=== PATIENT | female | born 1965 | race Caucasian/White ===

== ENCOUNTER 2018-06-27 17:45 | Emergency (ER) | payer OTHER ==
--- OUTSIDE RECORDS SUMMARY | 2018-06-27 17:58 | XMS REPORT | Continuity of Care Document ---
:1965 External Reference #:[id number] Author Name Tami Rueda Care Team Providers Name Role Phone Tan Hendrix NP Care Team Information Hand Finisher Unavailable Tan Hendrix NP Primary Care Physician Unavailable Payers Date Identification Numbers Payment Provider Subscriber Policy Number: [id number] [employer] Sanaz Hoyos PayID: [id number] [address] [place] [address] Expires: 2014 Policy Number: [id number] Systems Sanaz Hoyos [address] [address] Expires: 2017 Policy Number: [id number] Medicaid Sanaz Hoyos PayID: [id number] [address] [place] [address] Advance Directives Description No Information Available Problems Date Description Provider Status Onset: 12/06/2012 Crohn's disease Delmis Galarza M.D. Active Onset: 03/10/2011 Migraine Delmis Galarza M.D. Active Onset: 03/10/2011 Intrinsic asthma without status Delmis Galarza M.D. Active asthmaticus Onset: 06/04/2016 Screening for malignant neoplasm Yung Montero MD Active of colon Onset: 06/04/2016 Hemorrhage of rectum and anus Yung Montero MD Active Onset: 06/04/2016 Heartburn Yung Montero MD Active Onset: 09/28/2017 Flatulence, eructation and gas Yung Montero MD Active pain Onset: 07/29/2017 Duodenitis Yung Montero MD Active Onset: 07/29/2017 Ulcerative colitis Yung Montero MD Active Onset: 06/08/2017 Constipation Yung Montero MD Active Onset: 10/19/2014 Conjunctivitis Resolved Resolved: 04/08/2015 Onset: 06/15/2014 Bronchitis Resolved Resolved: 04/08/2015 Onset: 06/15/2014 Acute upper respiratory infection Resolved Resolved: 04/08/2015 Family History Date Family Member(s) Observation Comments Father Hypoglycemia : Father due to Lung Cancer (05/2016) Father Lung Cancer Mother Diabetes diet controlled Mother Hypercholesterolemia Paternal Grandfather Heart Attack Maternal Grandfather due to Throat Cancer () - + smoker Maternal Grandmother due to Tumors in () throat Social History Type Date Description Comments Sex Unknown Marital Status Patient is Home Environment Lives With Children Diet Patient follows no dietary restrictions Occupation [employer] Work Status Currently Working ETOH Use Denies alcohol use Tobacco Use Start: Unknown Patient has never smoked Recreational Drug Use Denies Drug Use Smoking Status Reviewed: 05/29/18 Patient has never smoked Allergies, Adverse Reactions, Alerts Date Description Reaction Status Severity Comments 03/10/2011 Ceftin Active 03/10/2011 Ibuprofen Active 10/19/2014 Codeine Active 10/19/2014 Lactose Active 10/19/2014 Cefuroxime Active 10/19/2014 Amoxicillin Active Medications Medication Date Status Form Strength Qnty SIG Indications Ordering Provider Gas-X Ultra 05/30/19 Active Capsules 180mg 60cap 2 tab by R14.2 Chito Strength 19 s Micky castillo, four MD times a day as needed Beano 05/30/19 Active Tablets 90tab 1 tab by Tati.2 Chito 19 s Micky castillo, three MD times a day before meals Apriso 07/22/19 Active Caps ER 0.375gm 120ca 4 caps by Chito 18 24HR ps Micky castillo every day Mesalamine 07/22/19 Active Enema 4gm 30uni 1 enema Chito 18 ts per Micky rectum every night 5 times a week Lansoprazole 06/15/19 Active Capsules 15mg 90cap 1 cap by Yung 18 DR neida Montero MD every day every morning Albuterol 07/30/19 Active Nebulizer 1.25mg/3M 75ml use with Clune, Sulfate 16 L nebulizer Ray as eigh, CLAIMS ASSISTANT directed every 4 hours Advair Diskus 04/08/19 Active Aerosol 250-50mcg 180un Inhale 1 J45.30 Clune, 16 /Dose its puff By Ray darby, CLAIMS ASSISTANT Twice Daily Benzonatate 01/30/20 Active Capsules 200mg 90cap one Clune, 15 s tablet by Jenniferl mouth eigh, CLAIMS ASSISTANT every 8 hours as needed cough Ventolin HFA 09/14/19 Active Aerosol 108(90Bas 1unit 2 Puffs Clune, 15 e) s By Mouth Jenniferl mcg/Act Every 4 eigh, CLAIMS ASSISTANT Hours as Needed Montelukast 12/23/19 Active Tablets 10mg 30tab Take 1 Clune, Sodium 13 s Tablet By Jenniferl Mouth eigh, CLAIMS ASSISTANT Every Day Propranolol HCL 11/03/19 Active Caps ER 160mg 120ca Take 2 Clune, ER 12 24HR ps Capsules Jenniferl By Mouth eigh, CLAIMS ASSISTANT Twice Daily Naratriptan HCL Active Tablets 2.5mg 27tab 1 tablet Clune, 00 s by mouth Jenniferl at start eigh, CLAIMS ASSISTANT of hunter, may repeat in 2 hours as needed Multivitamin Active Tablets 1 by Unknown Adult 00 mouth every day Restasis Active Emulsion 0.05% 1 drop Unknown 00 both eyes twice daily. please dispense 180 vials, which is 3 month supply Carbidopa-Levodo Active Tablets 25-100mg 1 tablet Unknown pa 00 by mouth tid Bactrim DS 11/11/19 Hx Tablets 800-160mg 20tab 1 tab by N39.0 Matias 18 - s mouth q12 Maisha, 11/26/19 x 10 days PNP-BC, 18 CLAIMS ASSISTANT, Ibclc Simethicone 09/29/19 Hx Chewtabs 80mg 120un 1 tab by R14.2 Yung 18 - its mouth MD Winston 05/30/19 four 19 times a day as needed Canasa 07/15/19 Hx Suppositor 1000mg 30uni 1 per Young 18 - y ts sera Montero MD Unknown every day every night Lialda 07/15/[address] 1.2gm 360ta 4 tab by Yung 18 - bs mouth MD Winston Unknown every day every morning Golytely 06/17/19 Hx Solution 236gm 4000m drink Yung 18 - Rec l half the MD Winston Unknown evening before and half the morning of the procedure (1 cup every 10') Miralax 06/17/19 Hx Powder 1Bott 255gm Yung 18 - le with 64 MD Winston Unknown oz of what ever she wants to drink and drink it all Dulcolax 06/09/[address] 5mg 4tabs 4 tablets K62.5 Yung 18 - taken a MD Winston Unknown 8pm the day before the procedure Magnesium 06/09/19 Hx Solution 1.745GM/3 296ml 1 bottle K62.5 Young Citrate 18 - 0ML po x one MD Winston Unknown as directed Moviprep 06/09/19 Hx Solution 100gm 1unit as K62.5 Yung 18 - Rec s directed MD Winston Unknown Esomeprazole 06/09/19 Hx Capsules 20mg 90cap 1 cap by R12 Yung Magnesium 18 - DR s mouth MD Winston Unknown every day every morning Prednisone 03/22/19 Hx Tablets 20mg 10tab 1 pO bid J45.21 Clolga, 18 - s x 5 days Jenniferl 03/27/19 eigh, CLAIMS ASSISTANT 18 Zithromax 03/22/19 Hx Tablets 250mg 6tabs take 2 J45.21 Ruma 18 - tabs by Jenniferl 03/28/19 mouth on eigh, CLAIMS ASSISTANT 18 day 1 then 1 tab by mouth qddays 2-5 Prednisone 05/31/19 Hx Tablets 20mg 8tabs Once Unknown 16 - Daily 05/18/19 17 Flovent HFA 04/08/19 Hx Aerosol 220mcg/Ac 1 puffs J45.30 Ruma, 16 - t twice Jenniferl 04/08/19 daily eigh, CLAIMS ASSISTANT 16 Cetirizine HCL 08/01/19 Hx Tablets 10mg 30tab 1 by J30.9 Clune, 15 - s mouth Jenniferl Unknown every day eigh, CLAIMS ASSISTANT Benzonatate 06/12/19 Hx Capsules 100mg 30cap 1 cap by Clune, 15 - s mouth Jenniferl 01/30/20 three eigh, CLAIMS ASSISTANT 15 times a day cough Cyclobenzaprine 03/29/19 Hx Tablets 10mg 90tab 1 tab by Ruma, HCL 15 - s mouth Jenniferl 05/18/19 every 8 eigh, CLAIMS ASSISTANT 17 hours as needed muscle spasms Tramadol HCL 03/29/19 Hx Tablets 50mg 80tab take 1-2 Kaity, 15 - s tabs by Delmis 05/18/19 MD anna 17 every 6 hours as needed moderate to severe pain Reference #: [id number] Flovent HFA 04/06/19 Hx Aerosol 110mcg/Ac 12uni inhale 2 Clune, 14 - t ts puffs by Ray 04/08/19 mouth eigh, CLAIMS ASSISTANT 16 twice daily Ventolin HFA 12/21/19 Hx Aerosol 108mcg/Ac 1unit inhale 2 Clune, 11 - t s puffs by Ray 09/14/19 mouth eigh, CLAIMS ASSISTANT 15 every 4 hours as needed Ranitidine 150 Hx Tablets 150mg 180ta 1 by Yung Maximum Strength 00 - bs anna Montero MD 02/29/20 twice a 18 day Benzonatate Hx Capsules 100mg Every 6 Unknown 00 - Hours prn 05/18/19 Cough 17 Fluorometholone Hx Suspension 0.1% Instill 1 Unknown 00 - GTT In Unknown Both Eyes qid. [employer] Immunizations CPT Code Status Date Vaccine Lot # 43678 Given 12/06/2012 Pneumovax Injection 19407 Given 12/06/2012 flu vaccination 40483 Given 01/22/2009 flu vaccination 90545 Given 01/29/2005 flu vaccination 49283 Refused 03/22/2017 Influenza Virus Vaccine Quadrivalent Iiv4 Split Preser Free Id Vital Signs Date Vital Result Comment 05/29/2018 1:06pm BP Systolic Sitting Left Arm 90 mmHg BP Diastolic Sitting Left Arm 50 mmHg Heart Rate 53 /min Respiratory Rate 16 /min Height 59 inches 4'11" Weight 125.00 lb BMI (Body Mass Index) 25.2 kg/m2 BSA (Body Surface Area) 1.51 m2 [place] body weight in kilograms 45 kg O2 % BldC Oximetry 98 % 12/02/2017 11:20am BP Systolic Sitting Left Arm 94 mmHg BP Diastolic Sitting Left Arm 62 mmHg Heart Rate 56 /min Respiratory Rate 16 /min Height 59 inches 4'11" Weight 124.00 lb BMI (Body Mass Index) 25.0 kg/m2 BSA (Body Surface Area) 1.51 m2 [place] body weight in kilograms 45 kg O2 % BldC Oximetry 96 % 11/10/2017 9:24am BP Systolic 100 mmHg BP Diastolic 60 mmHg Body Temperature 98.8 F Heart Rate 70 /min Respiratory Rate 18 /min Height 59 inches 4'11" Weight 127.00 lb BMI (Body Mass Index) 25.6 kg/m2 BSA (Body Surface Area) 1.52 m2 [place] body weight in kilograms 45 kg O2 % BldC Oximetry 98 % 09/28/2017 4:04pm BP Systolic Sitting Left Arm 98 mmHg BP Diastolic Sitting Left Arm 68 mmHg Heart Rate 62 /min Respiratory Rate 18 /min Height 59 inches 4'11" Weight 128.00 lb BMI (Body Mass Index) 25.9 kg/m2 BSA (Body Surface Area) 1.53 m2 [place] body weight in kilograms 45 kg O2 % BldC Oximetry 97 % 07/29/2017 11:39am BP Systolic Sitting Left Arm 100 mmHg BP Diastolic Sitting Left Arm 70 mmHg Heart Rate 60 /min Respiratory Rate 18 /min Height 59 inches 4'11" Weight 124.00 lb BMI (Body Mass Index) 25.0 kg/m2 BSA (Body Surface Area) 1.51 m2 [place] body weight in kilograms 45 kg 06/08/2017 12:49pm BP Systolic Sitting Right Arm 98 mmHg BP Diastolic Sitting Right Arm 62 mmHg Heart Rate 68 /min Respiratory Rate 18 /min Height 59 inches 4'11" Weight 129.00 lb BMI (Body Mass Index) 26.1 kg/m2 BSA (Body Surface Area) 1.53 m2 [place] body weight in kilograms 45 kg 05/23/2017 2:59pm BP Systolic Sitting Left Arm 118 mmHg BP Diastolic Sitting Left Arm 72 mmHg Heart Rate 76 /min Respiratory Rate 18 /min Height 59 inches 4'11" Weight 125.50 lb BMI (Body Mass Index) 25.3 kg/m2 BSA (Body Surface Area) 1.51 m2 [place] body weight in kilograms 45 kg 03/22/2017 3:54pm BP Systolic 102 mmHg BP Diastolic 62 mmHg Body Temperature 97.7 F Heart Rate 63 /min Weight 123.00 lb O2 % BldC Oximetry 97 % 06/04/2016 2:07pm BP Systolic 94 mmHg BP Diastolic 64 mmHg Weight 128.00 lb 05/17/2016 11:11am BP Systolic Sitting Left Arm 108 mmHg BP Diastolic Sitting Left Arm 68 mmHg Heart Rate 70 /min Respiratory Rate 18 /min Height 59 inches 4'11" Weight 125.00 lb BMI (Body Mass Index) 25.2 kg/m2 BSA (Body Surface Area) 1.51 m2 [place] body weight in kilograms 45 kg 04/08/2015 11:41am BP Systolic 108 mmHg BP Diastolic 64 mmHg Height 59 inches 4'11" Weight 113.00 lb BMI (Body Mass Index) 22.8 kg/m2 BSA (Body Surface Area) 1.45 m2 Last Menstrual Period [id number] 07/31/2014 11:41am BP Systolic Sitting Left Arm 106 mmHg BP Diastolic Sitting Left Arm 64 mmHg Body Temperature 97.8 F Height 59 inches 4'11" Weight 109.00 lb BMI (Body Mass Index) 22.0 kg/m2 BSA (Body Surface Area) 1.42 m2 Last Menstrual Period [id number] irreg menses 06/12/2014 2:53pm BP Systolic 102 mmHg BP Diastolic 62 mmHg Body Temperature 98.2 F Weight 113.00 lb 04/25/2014 2:37pm BP Systolic 104 mmHg BP Diastolic 64 mmHg Heart Rate 80 /min Respiratory Rate 18 /min Height 59 inches 4'11" Weight 110.00 lb 03/29/2014 1:11pm BP Systolic 124 mmHg BP Diastolic 72 mmHg Body Temperature 98.0 F Weight 108.00 lb 12/20/2013 1:20pm BP Systolic 112 mmHg BP Diastolic 70 mmHg Heart Rate 78 /min Respiratory Rate 18 /min Height 59 inches 4'11" Weight 105.00 lb 08/17/2013 11:16am BP Systolic 102 mmHg BP Diastolic 72 mmHg Heart Rate 76 /min Height 59.5 inches 4'11.50" Weight 113.00 lb 04/06/2013 11:26am BP Systolic 18 mmHg BP Diastolic 64 mmHg Body Temperature 98.7 F Height 59.5 inches 4'11.50" Weight 109.00 lb O2 % BldC Oximetry 95 % 12/27/2012 1:21pm BP Systolic 106 mmHg BP Diastolic 64 mmHg Body Temperature 98.5 F Height 59.5 inches 4'11.50" Weight 118.00 lb 12/06/2012 10:41am BP Systolic 100 mmHg BP Diastolic 56 mmHg Heart Rate 68 /min Respiratory Rate 18 /min Height 59.6 inches 4'11.60" Weight 115.00 lb 12/29/2011 9:45am BP Systolic 118 mmHg BP Diastolic 70 mmHg Body Temperature 98.3 F Height 59.6 inches 4'11.60" Weight 134.00 lb O2 % BldC Oximetry 98 % on rm air 10/18/2011 3:03pm BP Systolic 118 mmHg BP Diastolic 72 mmHg Heart Rate 72 /min Respiratory Rate 18 /min Height 59.5 inches 4'11.50" Weight 134.00 lb 03/10/2011 2:16pm BP Systolic 118 mmHg BP Diastolic 78 mmHg Body Temperature 97.7 F Heart Rate 76 /min Height 59 inches 4'11" Weight 138.00 lb Results Test Date Facility Test Result H/L Range Note Urine Culture 11/10/2017 [facility] Urine ESCHERICHIA COLI Abnormal [address] Culture [place], [place] [id number] [phone] Quantity > 100,000 CFU/mL 2 [id number] 11/10/2017 [facility] Nitrofurantoin <=16 [address] [place] [address] [phone] Trimethoprim/Sulfamethoxazole <=20 S Ampicillin <=2 S Cefazolin <=4 S Ampicillin/Sulbactam <=2 S Ciprofloxacin <=0.25 S Piperacillin/Tazobactam <=4 S Ceftazidime <=1 S Ceftriaxone <=1 S Cefepime <=1 S Levofloxacin <=0.12 S Imipenem <=0.25 S Gentamicin <=1 S Tobramycin <=1 S Urine Dipstick 11/10/2017 [facility] Color dark yellow Yellow Ua Clarity cloudy Clear Ua Leuko +500 High Negative Ua Nitrite pos Negative Ua Urobilinogen 0.2 0.2 - 1.0 E.U./dL Ua Protein +100 High Negative Ua PH 7.0 6.5-7.5 Ua Blood +250 High Negative Ua Specific [place] 1.025 1.010-1.030 Ua Ketones pos Negative Ua Bilirubin neg Negative Ua Glucose neg Negative Celiac Disease 08/05/2017 [facility] Immunoglobulin A 136 mg/dL 87-352 3, [address] [place] [address] [phone] Antigliadin Abs, IgG 2 units 0-19 5 Antigliadin Abs, IgA 3 units 0-19 6 Endomysial IgA Antibody Negative Negative t-Transglutaminase IgA <2 U/mL 0-3 7 t-Transglutaminase IgG <2 U/mL 0-5 8 Basic Metabolic Panel 07/29/2017 [facility] Glucose 97 mg/dL N 74-[address] [place] [address] [phone] BUN 11 mg/dL N 7-18 Creatinine 0.6 mg/dL N 0.6-1.3 Glom Filtration Rate, Estimate >60 mL/min >60 If >60 mL/min >60 10 BUN/Creat 18.3 ratio Sodium 142 mmol/L N 136-145 Potassium 4.1 mmol/L N 3.5-5.1 Chloride 108 mmol/L High 98-107 Carbon Dioxide 27 mmol/L N 21-32 Anion Gap 7 mEq/L Low 8-16 Calcium 9.1 mg/dL N 8.5-10.1 Comprehensive Metabolic 05/23/[address] [facility] [address] Glucose 99 mg/dL N 74 -106 [address] [place], [place] [id number] [phone] BUN 13 mg/dL N 7-18 Creatinine 0.5 mg/dL Low 0.6-1.3 Glom Filtration Rate, Estimate >60 mL/min >60 If >60 mL/min >60 12 BUN/Creat 26.0 ratio Sodium 141 mmol/L N 136-145 Potassium 3.7 mmol/L N 3.5-5.1 Chloride 108 mmol/L High 98-107 Carbon Dioxide 26 mmol/L N 21-32 Anion Gap 7 mEq/L Low 8-16 Calcium 8.8 mg/dL N 8.5-10.1 Total Protein 7.7 g/dL N 6.4-8.2 Albumin 3.9 g/dL N 3.4-5.0 Globulin 3.8 g/dL N 1.9-4.3 Alb/Glob 1.0 ratio Bilirubin,Total 0.2 mg/dL N 0.2-1.0 Sgot/Ast 16 U/L N 15-37 SGPT/Alt 28 U/L N 12-78 Alkaline Phosphatase 57 U/L N 45-117 CBS W/Automated Diff 05/23/[address] [facility] [address] White Blood 8.2 K/uL N 3.1-10.7 [address] [place], [place] [id number] [phone] Red Blood Count 4.27 M/uL N 3.90-5.40 Hemoglobin 14.0 gm/dL N 11.6-15.8 Hematocrit 40.8 % N 36.0-46.1 Mean Cell Volume 95.6 fl N 80.9-99.0 Mean Corpuscular HGB 32.8 pg High 25.9-32.7 Mean Corpuscular HGB Conc 34.3 g/dL N 30.8-34.3 Platelet Count 281 K/uL N 155-360 Red Cell Distri Width SD 43.0 fl N 3-47 Red Cell Distri Width %CV 12.7 % N 11.7-14.4 Mean Platelet Volume 11.9 fL N 8.9-12.4 Neut% 63.3 % N 40.4-72.8 Lymph % 21.9 % N 20.0-42.0 Wise % 11.6 % N 4.3-13.2 Eo% 2.6 % N 0.0-6.6 Bas% 0.6 % N 0.0-1.1 Neut# 5.16 K/uL N 1.8-7.0 Lymph # 1.79 K/uL N 1.0-4.0 Wise # 0.95 K/uL High 0.3-0.9 Eos # 0.21 K/uL N 0.0-0.5 Baso # 0.05 K/uL N 0.0-0.1 LDL Cholesterol Profile 05/23/[address] [facility] [address] Cholesterol 166 mg/dL <[address] [place] [address] [phone] Triglycerides 73 mg/dL <150 14 HDL Cholesterol 55 mg/dL >40 15 LDL-Cholesterol 96 mg/dL < 100 16 Laboratory 05/23/[address] [facility] [address] Thyroid Stim 0.44 uIU/mL N 0.30- 4.20 test finding [address] [place] [address] [phone] Laboratory 05/23/2017 [facility] Fit POSITIVE test finding Hemoccult Laboratory 04/28/[address] [facility] [address] Rubeola >300.0 Immune >29.9 17, test finding [address] Antibodies, AU/mL 18 [place] [address] Igg [phone] Laboratory 04/28/[address] [facility] [address] Mumps 97.8 AU/mL Immune >10.9 19 test finding [address] Antibodies, [place] [address] Igg [phone] Rubella Igg 04/28/2016 [facility] [address] Rubella IgG Reactive Reactive Antibody [address] [place] [address] [phone] Rubella IgG Iu/ml > 500.0 IU/mL >=10.0 20 Laboratory test 04/08/2015 [facility] (DO Not Use) Cytology Pap See Note N 21 finding Laboratory test 12/20/2013 N2N/CCD Import Cytology Pap See Note 22 finding Laboratory test 12/06/2012 N2N/CCD Import TSH (Thyroid 0.17 Low 0.34-5 finding Stimulating Horm) miu/mL .60 Basic Metabolic 12/06/2012 N2N/CCD Import Anion Gap 5.0 mmol/L 2-11 Panel BUN/Creatinine Ratio 24.0 High 8-20 Blood Urea Nitrogen 12 mg/dL 6-24 Calcium 9.1 mg/dL 8.1-9.9 Chloride 107 mmol/L 101-111 Co2 Carbon Dioxide 26.0 mmol/L 22-32 Creatinine 0.50 mg/dL 0.50-1.40 Egfr 170.8 >60 23 Egfr Non- 132.8 >60 Glucose 85 mg/dL 70-100 Potassium 4.0 mmol/L 3.5-5.0 Sodium 138 mmol/L 133-145 Lipid Profile 12/06/2012 N2N/CCD Import Cholesterol 145 mg/dL Less than (Trig/Chol/HDL) 200 Cholesterol/HDL Ratio 3.2 Average 1-4.44 HDL Cholesterol 46 mg/dL 40-60 24 LDL Cholesterol 89.4 Less Than 100 25 Triglycerides 48 mg/dL 40-200 Laboratory test 10/18/2011 N2N/CCD Import Hemoglobin A1c 5.1 % Less Than 6.0 26 finding Insulin 14.8 mcIU/mL 2.6 - 24.9 27 Basic Metabolic Panel 10/18/2011 N2N/CCD Import Anion Gap 6.0 mmol/L 2- 11 28 BUN 16 mg/dL 6-24 BUN/Creatinine Ratio 26.7 High 8-20 Calcium 9.1 mg/dL 8.1-9.9 Chloride 105 mmol/L 101-111 Co2 (Carbon Dioxide) 26.0 mmol/L 22-32 Creatinine 0.6 mg/dL 0.50-1.40 Glucose 91 mg/dL 70-100 One Over Creatinine 1.66 Potassium 4.0 mmol/L 3.5-5.0 Sodium 137 mmol/L 135-145 eGFR 139.0 > 60 29 eGFR Non- 108.1 > 60 Laboratory test 10/18/2011 N2N/CCD Import Cytology Pap See Note 30 finding Laboratory test 09/27/2011 N2N/CCD Import Urine Culture See Note 31 finding Hemoglobin A1c 09/27/2011 N2N/CCD Import Glycohemoglobin (A1c) 5.4 % 4.8 -6. 32 0 eAG 108 mg/dL Affirm 03/10/2011 N2N/CCD Import Lucia Negative 33 Gardnerella Negative Trichomonas Negative GC / Chlamydia 03/10/2011 N2N/CCD Import Chlamydia Negative GC Negative 34 1 ESCHERICHIA COLI 2 > 100,000 CFU/mL 3 K29.80 4 Performed at: RN - [facility] [address] [id number] Financial Rep: Margaux Donato MD, Phone: [phone] 5 Negative 0 - 19 Weak Positive 20 - 30 Moderate to Strong Positive >30 6 Negative 0 - 19 Weak Positive 20 - 30 Moderate to Strong Positive >30 7 Negative 0 - 3 Weak Positive 4 - 10 Positive >10 Tissue Transglutaminase (tTG) has been identified as the endomysial antigen. Studies have demonstr- ated that endomysial IgA antibodies have over 99% specificity for gluten sensitive enteropathy. 8 Negative 0 - 5 Weak Positive 6 - 9 Positive >9 9 K51.90 10 Note: Persistent reduction for 3 months or more in an eGFR <60 mL/min/1.73 m2 defines CKD. Patients with eGFR values >/=60 mL/min/1.73 m2 may also have CKD if evidence of persistent proteinuria is present. The original MDRD equation for estimated GFR is not valid for patients less than 18 years of age. Additional information may be found at www.kdoqi.org. 11 Z13.6 12 Note: Persistent reduction for 3 months or more in an eGFR <60 mL/min/1.73 m2 defines CKD. Patients with eGFR values >/=60 mL/min/1.73 m2 may also have CKD if evidence of persistent proteinuria is present. The original MDRD equation for estimated GFR is not valid for patients less than 18 years of age. Additional information may be found at www.kdoqi.org. 13 Reference Guidelines*: Desirable: ........... < 200 mg/dL Borderline High: ..... 200-239 mg/dL High: ................ >=240 mg/dL * The National Cholesterol Education Program (NCEP) 14 Reference Guidelines*: Normal: ............. < 150 mg/dL Borderline High: .... 150-199 mg/dL High: ............... 200-499 mg/dL Very High: .......... > 500 mg/dL * Source: National Cholesterol Education Program (NCEP) 15 Reference Guidelines*: Low HDL: ..... < 40 mg/dL Normal: ..... 40-60 mg/dL Desirable: ... > 60 mg/dL *The National Cholesterol Education Program(NCEP) 16 Reference Guidelines*: Optimal:........... <100 mg/dL Near Optimal....... 100-129 mg/dL Borderline High.... 130-159 mg/dL High............... 160-189 mg/dL Very High.......... >=190 mg/dL * Source: National Cholesterol Education Program (NCEP) 17 Z28.3 18 Negative <25.0 Equivocal 25.0 - 29.9 Positive >29.9 Presence of antibodies to Rubeola is presumptive evidence of immunity except when acute infection is suspected. 19 Negative <9.0 Equivocal 9.0 - 10.9 Positive >10.9 A positive result generally indicates past exposure to Mumps virus or previous vaccination. Performed at: RN - [facility] [address] [id number] Financial Rep: Margaux Donato MD, Phone: [phone] 20 Values >=10.0 IU/mL are positive for IgG antibodies to rubella virus and are considered IMMUNE. 21 Interpretation: NEGATIVE FOR INTRAEPITHELIAL LESION OR MALIGNANCY. Specimen Adequacy: SATISFACTORY FOR EVALUATION. Additional Findings: ENDOCERVICAL/TRANSFORMATION ZONE PRESENT. Cytology Laboratory [address], [address] [place] [address] CYTOLOGY REPORT Name: Sanaz Hoyos : 1965 (Age: 49) Sex: F Location: [facility] Med. Rec. # [id number] Date Collected: 04/08/2015 Billing #: [id number] Date Received: 04/08/2015 Requisition # [id number] Physician(s): TAN LAGOS Source of Specimen: ENDOCERVICAL/ECTOCERVICAL THIN PREP Clinical Information: Date of Last Menstrual Period: 03/17/15 tfn Electronic Signature ELIZABETH Acharya (ASCP) Reported: 04/11/2015 [employer] Dx Code(s): Z01.419 22 Cytology Laboratory [address] [place] [address] [address] [place] [address] CYTOLOGY REPORT Name: Sanaz Hoyos : 1965 (Age: 48) Sex: F Location: [facility] Med. Rec. # [id number] Date Collected: 12/20/2013 Billing #: [id number] Date Received: 12/20/2013 Requisition # [id number] Physician(s): TAN LAGOS Source of Specimen: VAGINAL/ENDOCERVICAL/ECTOCERVICAL THIN PREP Clinical Information: Date of Last Menstrual Period: 11/26/13 Interpretation: NEGATIVE FOR INTRAEPITHELIAL LESION OR MALIGNANCY. Specimen Adequacy: SATISFACTORY FOR EVALUATION. Additional Findings: ENDOCERVICAL/TRANSFORMATION ZONE PRESENT. dcl Electronic Signature ELIZABETH Jasso (ASCP) Reported: 12/25/2013 [employer] ICD-9 Code(s) V72.31 23 Because ethnic data is not always readily available, this report includes an eGFR for both -Americans and non- Americans. The National Kidney Disease Education Program (NKDEP) does not endorse the use of the MDRD equation for patients that are not between the ages of 18 and 70, are , have extremes of body size, muscle mass, or nutritional status, or are non- or non-. According to the National Kidney Foundation, irrespective of diagnosis, the stage of the disease is based on the level of kidney function: Stage Description GFR(mL/min/1.73 m(2)) 1 Kidney damage with normal or decreased GFR 90 2 Kidney damage with mild decrease in GFR 60- 89 3 Moderate decrease in GFR 30-59 4 Severe decrease in GFR 15-29 5 Kidney failure <15 (or dialysis) 24 HDL Interpretation: Undesirable: High Risk: Less than 40 mg/dL Desirable: Low Risk: Greater than 60 mg/dL 25 LDL Interpretation: Low Risk Optimal Level: LDL Less than 100 mg/dL Near or Above Optimal: LDL 100-129 mg/dL Borderline High Risk: LDL 130-159 mg/dL High Risk : LDL 160-189 mg/dL Very High Risk: LDL Greater than 189 mg/dL 26 THERAPEUTIC TARGET FOR THE TREATMENT OF DIABETES MELLITUS PATIENTS IS <7% HBA1C, AND IN SELECTIVE PATIENTS <6.0%. PLEASE REFER TO [place] [employer] DIABETIC CARE GUIDELINES FOR FURTHER INFORMATION. 27 Test Performed by: [place] [address] Instructional Material Director: Jose A Douglas III, M.D. 28 Anion gap measurement may be of limited value in the presence of any alkalosis, especially in a combined acid base disorder. . 29 Because ethnic data is not always readily available, this report includes an eGFR for both -Americans and non- Americans. The National Kidney Disease Education Program (NKDEP) does not endorse the use of the MDRD equation for patients that are not between the ages of 18 and 70, are , have extremes of body size, muscle mass, or nutritional status, or are non- or non-. According to the National Kidney Foundation, irrespective of diagnosis, the stage of the disease is based on the level of kidney function: Stage Description GFR(mL/min/1.73 m(2)) 1 Kidney damage with normal or decreased GFR 90 2 Kidney damage with mild decrease in GFR 60- 89 3 Moderate decrease in GFR 30-59 4 Severe decrease in GFR 15-29 5 Kidney failure <15 (or dialysis) 30 [facility] Laboratory [address] [place] [address] [address] [place] [address] CYTOLOGY REPORT Name: Sanaz Gordon : 1965 (Age: 46) Sex: F Location: [facility] Date Collected: 10/18/2011 Billing #: [id number] Date Received: 10/19/2011 Physician( s): DELMIS GALARZA MD Source of Specimen: ENDOCERVICAL/ECTOCERVICAL THIN PREP Clinical Information: Date of Last Menstrual Period: 10/13/11 Menstrual History : Regular Specimen Adequacy: SATISFACTORY FOR EVALUATION. ADEQUATE ENDOCERVICAL/TRANSFORMATION ZONE. General Categorization: NEGATIVE FOR INTRAEPITHELIAL LESION OR MALIGNANCY. brett Electronic Signature ELIZABETH Ballard (ASCP) Reported: 10/21/2011 Cytology [facility] ICD-9 Code(s) V72.31 31 COLONY COUNT ! 80,000-100,000 CFU/ml Organism 1 ! MIXED URETHRAL YAMILA 32 A1c value between 5.7% and 6.4% is considered at increased risk for diabetes. A1c value greater than 6.5 % is considered essentially diagnostic for Type II diabetes. Current guidelines recommend a treatment goal of <7% for diabetic patients. This method will measure glycosylated hemoglobin variants, HbS, HbG , HbH, HbWayne, HbC, HbE, etc. Other hemoglobin- opathies may give incorrect results with this test. 33 [facility] [address] [place] [address] AFFIRM VAGINOSIS / VAGINITIS REPORT Name: Sanaz Gordon : 1965 (Age: 45) Sex: F Location: [facility] Sec. #: [id number] Date Collected: 03/10/2011 Billing #: [id number] Date Received: 03/11/2011 Physician(s): DELMIS GALARZA MD Source of Specimen: Vaginal Results: Lucia species DNA Probe NEGATIVE Gardnerella vaginalis DNA Probe NEGATIVE Trichomonas vaginalis DNA Probe NEGATIVE Reported: 03/12/2011 Electronic Signature elizabeth Jameson [facility] Outreach Technical Laboratory [facility] ICD-9 Codes: A: 616.10 34 [facility] [address] [place] [address] GC / CHLAMYDIA REPORT Name: Sanaz Gordon : 1965 (Age: 45) Sex: F Location: [facility] Sec. #: [id number] Date Collected: 03/10/2011 Billing #: [id number] Date Received: 03/11/2011 Physician(s): DELMIS GALARZA MD Source of Specimen: Endocervical swab Results: Neisseria gonorrhoeae NEGATIVE Chlamydia trachomatis NEGATIVE Comment: This analysis was performed using second generation nucleic acid amplification testing (NAAT). Reported: 03/16/2011 Electronic Signature [facility] Technical Laboratory [facility] ICD-9 Codes: 616.10 Procedures Date Code Description Status 07/19/2017 [id number] Mammogram Completed 07/14/2017 [id number] Colonoscopy Completed 07/14/2017 61883 Colonoscopy With Biopsy Completed 07/14/2017 01990 EGD With Biopsy Completed 07/15/2016 [id number] Mammogram Completed 02/21/1998 20461 Excision Of Warts Less Than 15 Completed 01/23/1998 54057 Destruct-Skin Tags/Lesions-Local Anesthesia - First Completed Lesion 11/28/1997 33789 Destruct-Skin Tags/Lesions-Local Anesthesia - First Completed Lesion 11/12/1997 25408 Destruct-Skin Tags/Lesions-Local Anesthesia - First Completed Lesion 10/31/1997 33325 Destruct-Skin Tags/Lesions-Local Anesthesia - First Completed Lesion 09/30/1997 58766 Destruct-Skin Tags/Lesions-Local Anesthesia - First Completed Lesion 09/16/1997 25629 Destruct-Skin Tags/Lesions-Local Anesthesia - First Completed Lesion 09/03/1997 49118 Destruct-Skin Tags/Lesions-Local Anesthesia - First Completed Lesion 08/26/1997 03332 Destruct-Skin Tags/Lesions-Local Anesthesia - First Completed Lesion 08/13/1997 23150 Destruct-Skin Tags/Lesions-Local Anesthesia - First Completed Lesion 07/22/1997 84451 Destruct-Skin Tags/Lesions-Local Anesthesia - First Completed Lesion 07/22/1997 92370 Excision Of Warts Less Than 15 Completed 07/04/1997 99525 Destruct-Skin Tags/Lesions-Local Anesthesia - First Completed Lesion 07/01/1997 35080 Destruct-Skin Tags/Lesions-Local Anesthesia - First Completed Lesion 06/10/1997 14930 Excision Of Warts Less Than 15 Completed 05/28/1997 68945 Excision Of Warts Less Than 15 Completed 05/14/1997 15122 Excision Of Warts Less Than 15 Completed 1997 99247 Excision Of Warts Less Than 15 Completed 04/12/1997 85454 Excision Of Warts Less Than 15 Completed 03/25/1997 83502 Excision Of Warts Less Than 15 Completed 04/30/1992 87254 Excision Of Warts Less Than 15 Completed 12/05/1991 12980 Excision Of Warts Less Than 15 Completed 73362 Mammography Unilateral Completed Encounters Type Date Location Provider Dx Diagnosis Office Visit 05/29/2018 1:00p Micky Flores MD R14.2 Eructation K51.90 Ulcerative colitis, unspecified, without complications Office Visit 12/02/2017 11:00a CORDELL Montero MD K51.90 Ulcerative colitis, unspecified, without complications R12 Heartburn R14.2 Eructation Office Visit 11/10/2017 9:15a Family Medicine Maisha Salcedo, N39.[address] PNP-NEREIDA, CLAIMS ASSISTANT, infection, site not Ibclc specified Office Visit 09/28/2017 4:15p CORDELL Montero MD K51.90 Ulcerative colitis, unspecified, without complications R12 Heartburn K29.80 Duodenitis without bleeding R14.2 Eructation Office Visit 07/29/2017 11:15a CORDELL Montero MD K51.90 Ulcerative colitis, unspecified, without complications R12 Heartburn K29.80 Duodenitis without bleeding Office Visit 06/08/2017 1:00p CORDELL Montero MD K62.5 Hemorrhage of anus and rectum R12 Heartburn K59.00 Constipation, unspecified Office Visit 05/23/2017 Family Ruma 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 YOLIS Beaver exam (general) RD (routine) w abnormal findings 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 Z13.6 Encounter for screening for cardiovascular disorders Z12.11 Encounter for screening for malignant neoplasm of colon Office Visit 03/22/2017 Ruma, J45.21 Mild intermittent 3:30p Medicine [place] YOLIS Maddox asthma with RD (acute) exacerbation Office Visit 06/04/2016 CORDELL Montero MD Z12.11 Encounter for 2:15p screening for malignant neoplasm of colon K62.5 Hemorrhage of anus and rectum R12 Heartburn Office Visit 05/17/2016 Ruma, 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 11:00a [place] YOLIS Maddox exam (general) RD (routine) w abnormal findings J45.30 Mild persistent asthma, uncomplicated 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 Office Visit 04/08/2015 Ruma, Z01.419 Encntr for college football coach 11:30a Medicine [place] YOLIS Maddox exam (general) RD (routine) w/o abn findings J45.30 Mild persistent asthma, uncomplicated 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 Office Visit 07/31/2014 11:30a [facility] Medicine Ruma, 333.[address] YOLIS Maddox Torsion Dystonia 477.9 Rhinitis Allergic Cause Unspec Office Visit 06/12/2014 2:45p [facility] Medicine Ruma, [address] [facility], CLAIMS ASSISTANT Torsion Dystonia 784.0 Headache Plan of Treatment Future Appointment(s):08/29/2018 10:15 am - Micky Dale MD at GI05/29/2018 - Micky Dale, MDR14.2 EructationNew Medication:Gas-X Ultra Strength 180 mg - 2 tab by mouth four times a day as neededBeano - 1 tab by mouth three times a day before mealsComments:celiac negative. does not rule out gluten sensitivitywill try increasing simethicone to adult dosetrial of yisizO04.90 Ulcerative colitis, unspecified, without complicationsComments:keep mesalamine enema to 3 times a weekwe discussed option for sigmoidoscopy, to look at colonFollow up:3 months
--- NOTE | 2018-06-27 18:28 | UC ---
Eye Complaint HPI - HPI Summary HPI Summary: Over the past 2-3 days the patient has had some redness to her right I and mild pain. She had bilateral cataract surgery in 2015 without complications until approximately one month ago when she had some debris cleaned off from the right lens by Dr. Mcdermott. She states she had a small amount of exudate in the corner of her eye today however no continuous draining of pus. She states that she has mildly blurry vision in the right eye, no recent illness, no fever or chills. - History of Current Complaint Stated Complaint: POSS. PINK EYE Time Seen by Provider: 06/27/18 18:15 Hx Obtained From: Patient ?: No Onset/Duration: Gradual Onset Timing: Constant Severity Initially: Mild Severity Currently: Mild Location of Injury: Other - No Injury Aggravating Factor(s): Light - Patient states mildly light sensitive Alleviating Factor(s): Nothing Associated Signs And Symptoms: Positive: Negative - Allergies/Home Medications Allergies/Adverse Reactions: Allergies Allergy/AdvReac Type Severity Reaction Status Date / Time amoxicillin Allergy Unknown migrane Verified 06/27/18 18:08 ciprofloxacin [From Cipro] Allergy Unknown Rash Verified 06/27/18 18:08 codeine Allergy Unknown Nausea And Verified 06/27/18 18:08 Vomiting ibuprofen Allergy Unknown GI Upset Verified 06/27/18 18:08 lactose Allergy Unknown GI Upset Verified 06/27/18 18:08 Home Medications: Home Medications Albuterol 2.5MG/3ML (0.083%)* [Ventolin 2.5 MG/3 ML NEB.GABRIELA*] 2.5 mg INH Q4H PRN 06/27/18 [History Confirmed 06/27/18] Albuterol HFA INHALER* [Ventolin HFA Inhaler*] 2 puff INH Q4H PRN 06/27/18 [ History Confirmed 06/27/18] Benzonatate CAP* [Tessalon 100 MG CAP*] 200 mg PO TID PRN 06/27/18 [History Confirmed 06/27/18] Cyclosporine 0.05% OPHTH (NF) [Restasis 0.05% OPHTH] 1 drop BOTH EYES 06/27/18 [ History] Fluticasone-Salmeterol 250-50* [Advair Diskus 250-50*] 1 puff INH BID 06/27/18 [ History Confirmed 06/27/18] Iron 27 mg PO DAILY 06/27/18 [History Confirmed 06/27/18] Lansoprazole 15 mg PO DAILY 06/27/18 [History Confirmed 06/27/18] Levodopa [Inbrija] 1 cap PO DAILY 06/27/18 [History Confirmed 06/27/18] Mesalamine W/Cleansing Wipes [Mesalamine] 4 gm MS PRN 06/27/18 [History] Mesalamine [Apriso] 4 cap PO DAILY 06/27/18 [History Confirmed 06/27/18] Montelukast Sodium TAB* [Singulair TAB*] 10 mg PO DAILY 06/27/18 [History Confirmed 06/27/18] Naratriptan HCl 2.5 mg PO PRN 06/27/18 [History] Propranolol LA CAP* [Inderal LA CAP*] 2 cap PO BID 06/27/18 [History Confirmed 06/27/18] PMH/Surg Hx/FS Hx/Imm Hx Previously Healthy: Yes - Surgical History Surgical History: Yes - Bilateral cataract surgery in 2014, one month ago had debris cleaned from the right lens. - Family History Known Family History: Positive: Non-Contributory Review of Systems All Other Systems Reviewed And Are Negative: Yes Eyes: Positive: Blurred Vision - Patient states she has mildly blurred vision today, some right eye redness this morning. At times she has had a small amount of exudate at the inner canthus. Is Patient Immunocompromised?: No Physical Exam Triage Information Reviewed: Yes Appearance: Well-Appearing, No Pain Distress, Well-Nourished Vital Signs Reviewed: Yes Eyes: Positive: Conjunctiva Clear. Negative: Discharge - PERRLA, EOMI ENT: Positive: Pharynx normal, TMs normal Psychological Exam: Normal Skin Exam: Normal Eye Complaint Course/Dx - Course Course Of Treatment: Comfortable here. Patient agrees that she will call Dr. Whitley first thing in the morning and be evaluated there, since Dr. Whitley is one that did the cataract surgery as well as the procedure 1 month ago for cleaning the debris from the lens. - Differential Dx/Diagnosis Provider Diagnosis: Pain, eye, right Discharge - Sign-Out/Discharge Documenting (check all that apply): Patient Departure All imaging exams completed and their final reports reviewed: No Studies - Discharge Plan Condition: Good Disposition: HOME Referrals: Clune,Latesha Justine, [facility] [Primary Care Provider] - Clover Mcdermott MD [Medical Doctor] - Additional Instructions: Call Dr. Whitley first thing in the morning tomorrow and have your eye rechecked. - Billing Disposition and Condition Condition: GOOD Disposition: Home - Attestation Statements Provider Attestation: Per institutional requirements, I have reviewed the chart, however, I was not consulted specifically or made aware of this patient by the midlevel provider. I did not personally evaluate, interact with , or disposition this patient.
[2018-06-27 18:32] VITALS: BP 105/67
== END 2018-06-27 18:36 | disposition home or self-care (01) ==
LOC: UCCORT 17:45
DX: H57.11 Ocular pain, right eye (principal); H53.8 Other visual disturbances; Z98.42 Cataract extraction status, left eye; Z98.41 Cataract extraction status, right eye; Z88.6 Allergy status to analgesic agent; Z88.1 Allergy status to other antibiotic agents; Z88.5 Allergy status to narcotic agent; Z88.0 Allergy status to penicillin; Z91.048 Other nonmedicinal substance allergy status
CPT/HCPCS: 99212; G0463